=== PATIENT | female | born 1965 ===

== ENCOUNTER 2017-10-07 15:09 | Outpatient (CLI) | payer OTHER ==
[2017-10-07] MEDS ORDERED: iohexol 300mg/ml 100ml inj. ONE (15:18)
== END 2017-10-07 23:59 | disposition home or self-care (01) ==
LOC: 64 CT 15:09
PROVIDERS: ATTEND Specialist
DX: J90 Pleural effusion, not elsewhere classified (principal); J98.11 Atelectasis; K65.8 Other peritonitis; Z90.49 Acquired absence of other specified parts of digestive tract
CPT/HCPCS: 74178; J7030; Q9967